=== PATIENT | female | born 1935 | race Hispanic/Latino ===

== ENCOUNTER → 2018-06-28 | Outpatient (CLI) | payer OTHER | END | disposition home or self-care (01) | LOC: RAH 09:54 | PROVIDERS: ATTEND Family Medicine | DX: Z12.31 Encounter for screening mammogram for malignant neoplasm of breast (principal) | CPT/HCPCS: 77067 ==

== ENCOUNTER → 2022-03-01 | Outpatient (CLI) | payer OTHER ==
[~2022-03-01] VITALS: Ht 160 cm; Wt 84.4 kg
[~2022-03-01] MED LIST: REGADENOSON 0.4 MG/5 ML PF SYG IVP SCH
== END | disposition home or self-care (01) ==
LOC: SHCH 09:09
PROVIDERS: ATTEND Internal Medicine Cardiovascular Disease
DX: I20.9 Angina pectoris, unspecified (principal); I45.10 Unspecified right bundle-branch block
CPT/HCPCS: 78452; 96374; 93017; J2785; A9500 ×2

== ENCOUNTER 2022-04-20 06:04 | Day surgery (SDC) | payer OTHER ==
[2022-04-16 11:35] LABS: BASOPHILS % (AUTO) 0.4 % (0.0-5.0); EOSINOPHILS % (AUTO) 2.1 % (0.0-8.0); HEMATOCRIT 37.8 % (36-48); LYMPHOCYTES % (AUTO) 26.1 % (21.0-51.0); MEAN CORPUSCULAR HEMOGLOBIN 29.1 pg (27.0-33.0); MEAN CORPUSCULAR VOLUME 90.9 fL (79-99); MONOCYTES % (AUTO) 6.4 % (3.0-13.0); NEUTROPHILS % (AUTO) 64.6 % (40.0-77.0); PLATELET COUNT (AUTO) 283 K/uL (130-400); RED BLOOD CELL COUNT(AUTO) 4.16 MIL/uL (4.00-5.50); RED CELL DISTRIBUTION WIDTH 13.5 % (11.0-15.5); WHITE BLOOD COUNT (AUTO) 7.5 K/uL (4.8-10.8)
[2022-04-16 11:48] LABS: CREATININE 1.6 mg/dL (0.5-1.5); POTASSIUM 4.4 mmol/L (3.5-5.1)
[2022-04-16 11:51] LABS: INR 0.95 (0.85-1.15); PROTHROMBIN TIME 10.4 SEC (9.6-11.6)
[2022-04-16 11:53] LABS: PARTIAL THROMBOPLASTIN TIME 29.2 SEC (26.3-35.5)
[2022-04-16 12:04] LABS: B-TYPE NATRIURETIC PEPTIDE 510 pg/mL (0-100)
[2022-04-16 12:12] LABS: APPEARANCE,URINE CLEAR (CLEAR); BILIRUBIN,URINE NEGATIVE (NEGATIVE); COLOR,URINE LIGHT-YELLOW (YELLOW); GLUCOSE, URINE (UA) NEGATIVE (NEGATIVE); KETONES,URINE NEGATIVE (NEGATIVE); LEUKOCYTE ESTERASE ,URINE 500 Leu/uL (NEGATIVE); NITRATE,URINE NEGATIVE (NEGATIVE); OCCULT BLOOD,URINE NEGATIVE (NEGATIVE); PROTEIN,URINE 100 mg/dL (NEGATIVE); UROBILINOGEN,URINE 0.2 mg/dL (0.2-1.0)
[2022-04-16 12:32] LABS: BACTERIA,URINE FEW /HPF (None Seen); MUCUS,URINE RARE LPF (None Seen); RBC,URINE 0-1 /HPF (0-1); SQUAMOUS EPITHELIAL CELL,UR RARE /HPF (0-2); WBC,URINE 26-50 /HPF (0-1)
[2022-04-19 10:25] VITALS: BP 110/80
[~2022-04-20] VITALS: Ht 154.9 cm; Wt 83.9 kg
[2022-04-20] VITALS (25 sets, daily range): BP systolic 88–177; BP diastolic 33–81
[~2022-04-20 06:04] MED LIST changes: +ATEN50TA PO; +CLON0.1T PO; +COLC0.6T73 PO; +OMEP40CA21 PO; -REGADENOSON 0.4 MG/5 ML PF SYG IVP SCH; +ROSU10TA28 PO
[2022-04-20] MEDS ORDERED: 0.9%NACL 1000ML 1,000 ML IV ONE (06:24)
[2022-04-20 06:35] LABS: CREATININE 1.7 mg/dL (0.5-1.5); POTASSIUM 4.3 mmol/L (3.5-5.1)
[2022-04-20] MEDS ORDERED: HEPARIN 1,000 UNIT VIAL ONE (07:11)
[2022-04-20] MEDS ORDERED: HEPARIN 10,000 UNIT/10ML (1,000 UNIT/ML) VIAL ONE (07:12)
[2022-04-20] MEDS ORDERED: IOHEXOL 350 MG/ML 100ML INFUS..BTL IV ONE (07:12)
[2022-04-20] MEDS ORDERED: IOHEXOL-350 50ML VIAL IV ONE (07:12)
[2022-04-20] MEDS ORDERED: LIDOCAINE HCL 400MG/20ML VIAL ONE (07:12)
[2022-04-20] MEDS ORDERED: LEVO250T75 PO (07:15)
[2022-04-20] MEDS ORDERED: ENALAPRILAT DIHYDRATE 1.25 MG/ML 2ML VIAL IVP ONE (08:29)
[2022-04-20] MEDS ORDERED: CLONIDINE HCL 0.1 MG TABLET ONE (08:58)
[2022-04-20] MEDS ORDERED: NITROGLYCERIN 4.1 GM SPRAY TL ONE (09:04)
== END 2022-04-20 19:10 | disposition home or self-care (01) ==
LOC: DAH 06:04
PROVIDERS: ATTEND Internal Medicine Cardiovascular Disease
DX: I35.0 Nonrheumatic aortic (valve) stenosis (principal); I25.119 Atherosclerotic heart disease of native coronary artery with unspecified angina pectoris; I10 Essential (primary) hypertension; Z79.899 Other long term (current) drug therapy; Z79.01 Long term (current) use of anticoagulants
CPT/HCPCS: 80048 ×2; 83880; 85025; 85610; 85730; 87088; 81001; 36415 ×2; 71045; 93005 ×2; 93460; A4344 ×2; C1769 ×3; C1894 ×3; J3490 ×2; J7030; J1644 ×2; Q9967 ×2; Q9965

== ENCOUNTER 2022-05-04 21:48 | Observation (INO) | payer OTHER ==
[~2022-05-04] VITALS: Ht 157.5 cm; Wt 84.1 kg
[~2022-05-04 21:48] MED LIST changes: +LEVO250T75 PO
[2022-05-04] MEDS ORDERED: CLOPIDOGREL 300MG TAB PO ONE (22:00)
[2022-05-04 22:24] LABS: BASOPHILS % (AUTO) 0.3 % (0.0-5.0); EOSINOPHILS % (AUTO) 5.5 % (0.0-8.0); HEMATOCRIT 30.8 % (36-48); LYMPHOCYTES % (AUTO) 31.1 % (21.0-51.0); MEAN CORPUSCULAR HEMOGLOBIN 29.5 pg (27.0-33.0); MEAN CORPUSCULAR HGB CONC 32.8 g/dL (32.0-36.0); MEAN CORPUSCULAR VOLUME 90.1 fL (79-99); MONOCYTES % (AUTO) 7.4 % (3.0-13.0); NEUTROPHILS % (AUTO) 55.4 % (40.0-77.0); PLATELET COUNT (AUTO) 249 K/uL (130-400); RED BLOOD CELL COUNT(AUTO) 3.42 MIL/uL (4.00-5.50); RED CELL DISTRIBUTION WIDTH 13.5 % (11.0-15.5); WHITE BLOOD COUNT (AUTO) 6.2 K/uL (4.8-10.8)
[2022-05-04 22:33] LABS: CREATININE 1.9 mg/dL (0.5-1.5); POTASSIUM 4.6 mmol/L (3.5-5.1)
[2022-05-04 22:38] LABS: ALBUMIN 3.1 g/dL (3.5-5.0)
[2022-05-04 22:44] LABS: B-TYPE NATRIURETIC PEPTIDE 131 pg/mL (0-100)
[2022-05-05] MEDS ORDERED: TEMAZEPAM 15 MG CAPSULE PO PRN (08:30)
[2022-05-05] MEDS ORDERED: ACETAMINOPHEN 650 MG SUPPOSITORY RC PRN (08:30)
[2022-05-05] MEDS ORDERED: DOCUSATE SODIUM 100 MG CAP PO PRN (08:30)
[2022-05-05] MEDS ORDERED: LABETALOL 20MG SYG IV PRN (08:30)
[2022-05-05] MEDS ORDERED: ACETAMINOPHEN 325 MG TAB PO PRN (08:30)
[2022-05-05] MEDS ORDERED: LACTULOSE 20 GM/30 ML UDCUP PO PRN (08:30)
[2022-05-05] MEDS ORDERED: HYDRALAZINE 20MG/ML VIAL IV PRN (08:30)
[2022-05-05] MEDS ORDERED: ONDANSETRON 4MG INJ IVP PRN (08:30)
[2022-05-05] MEDS ORDERED: CLONIDINE HCL 0.1 MG TABLET PO PRN (09:00)
[2022-05-05] MEDS ORDERED: ATENOLOL 50 MG TABLET PO SCH (09:00)
[2022-05-05] MEDS: ASPIRIN 81MG CHEW TAB PO SCH (09:57)
[2022-05-05] MEDS: 0.9%NACL 1000ML 1,000 ML IV SCH (14:00)
[2022-05-05] MEDS ORDERED: FAMOTIDINE 20MG TAB PO ONE (15:30)
[2022-05-05] MEDS ORDERED: AMOX/CLAV 500/125MG TAB PO ONE (16:21)
[2022-05-05] MEDS ORDERED: FAMOTIDINE 20MG TAB ONE (16:21)
[2022-05-05] MEDS: AMOX/CLAV 500/125MG TAB PO SCH (16:33)
[2022-05-05] MEDS: ATORVASTATIN 40 MG TABLET PO SCH (20:05)
[2022-05-05] MEDS ORDERED: SILVER SULFADIAZINE CREAM 400 GM TP SCH (21:00)
[2022-05-05 23:40] VITALS: BP 175/83
[2022-05-06] MEDS: 0.9%NACL 1000ML 1,000 ML IV SCH ×2 (03:20→12:14)
[2022-05-06] MEDS: AMOX/CLAV 500/125MG TAB PO SCH ×2 (03:40→14:54)
[2022-05-06] MEDS: CLONIDINE HCL 0.1 MG TABLET PO PRN ×2 (03:40→19:27)
[2022-05-06 03:56] VITALS: BP 174/73
[2022-05-06 05:06] LABS: BASOPHILS % (AUTO) 0.7 % (0.0-5.0); EOSINOPHILS % (AUTO) 5.9 % (0.0-8.0); HEMATOCRIT 32.9 % (36-48); LYMPHOCYTES % (AUTO) 30.7 % (21.0-51.0); MEAN CORPUSCULAR HEMOGLOBIN 28.8 pg (27.0-33.0); MEAN CORPUSCULAR HGB CONC 31.9 g/dL (32.0-36.0); MEAN CORPUSCULAR VOLUME 90.4 fL (79-99); MONOCYTES % (AUTO) 7.9 % (3.0-13.0); NEUTROPHILS % (AUTO) 54.3 % (40.0-77.0); PLATELET COUNT (AUTO) 241 K/uL (130-400); RED BLOOD CELL COUNT(AUTO) 3.64 MIL/uL (4.00-5.50); RED CELL DISTRIBUTION WIDTH 13.3 % (11.0-15.5); WHITE BLOOD COUNT (AUTO) 6.1 K/uL (4.8-10.8)
[2022-05-06 05:19] LABS: CREATININE 1.5 mg/dL (0.5-1.5); MAGNESIUM 1.7 mg/dL (1.80-2.40); PHOSPHORUS 4.3 mg/dL (2.5-4.9); POTASSIUM 4.1 mmol/L (3.5-5.1)
[2022-05-06 08:00] VITALS: BP 147/55
[2022-05-06] MEDS: ASPIRIN 81MG CHEW TAB PO SCH (10:28)
[2022-05-06] MEDS: FAMOTIDINE 20MG TAB PO SCH (10:30)
[2022-05-06] MEDS: ATENOLOL 50 MG TABLET PO SCH (10:31)
[2022-05-06 12:00] VITALS: BP 148/77
[2022-05-06] MEDS ORDERED: IOHEXOL 350 MG/ML 100ML INFUS..BTL IV ONE (12:08)
[2022-05-06] MEDS ORDERED: MAGNESIUM 2GM PREMIX 50ML 50 ML IV ONE (14:51)
[2022-05-06] MEDS: SILVER SULFADIAZINE CREAM 50 GM TP SCH ×2 (14:53→19:23)
[2022-05-06 16:00] VITALS: BP 130/45
[2022-05-06] MEDS: ATORVASTATIN 40 MG TABLET PO SCH (19:23)
[2022-05-06 20:00] VITALS: BP 167/64
[2022-05-07] VITALS: BP 133/64
[2022-05-07] MEDS: 0.9%NACL 1000ML 1,000 ML IV SCH (03:38)
[2022-05-07] MEDS: AMOX/CLAV 500/125MG TAB PO SCH (03:38)
[2022-05-07 04:00] VITALS: BP 149/62
[2022-05-07 04:49] LABS: HEMATOCRIT 30.4 % (36-48); MEAN CORPUSCULAR HEMOGLOBIN 29.1 pg (27.0-33.0); MEAN CORPUSCULAR HGB CONC 32.9 g/dL (32.0-36.0); MEAN CORPUSCULAR VOLUME 88.4 fL (79-99); RED BLOOD CELL COUNT(AUTO) 3.44 MIL/uL (4.00-5.50); RED CELL DISTRIBUTION WIDTH 13.5 % (11.0-15.5); WHITE BLOOD COUNT (AUTO) 5.5 K/uL (4.8-10.8)
[2022-05-07 05:18] LABS: CREATININE 1.6 mg/dL (0.5-1.5); MAGNESIUM 2.4 mg/dL (1.80-2.40); PHOSPHORUS 4.6 mg/dL (2.5-4.9); POTASSIUM 4.8 mmol/L (3.5-5.1)
[2022-05-07 07:30] VITALS: BP 142/63
[2022-05-07] MEDS: FAMOTIDINE 20MG TAB PO SCH (08:59)
[2022-05-07] MEDS: ASPIRIN 81MG CHEW TAB PO SCH (08:59)
[2022-05-07] MEDS: ATENOLOL 50 MG TABLET PO SCH (09:00)
[2022-05-07] MEDS ORDERED: ASPI-1005 PO (09:57)
[2022-05-07] MEDS ORDERED: AMOX1TAB15 PO (09:57)
[2022-05-07] MEDS ORDERED: ATEN50TA PO (09:57)
[2022-05-07] MEDS ORDERED: SILV25CR23 TP (09:57)
[2022-05-07 11:00] VITALS: BP 131/58
== END 2022-05-07 13:40 | disposition home or self-care (01) ==
LOC: EDH 21:48 → EDHIP 23:18 → 4DH 05-05 23:18
PROVIDERS: ADMIT Internal Medicine Critical Care Medicine; ATTEND Internal Medicine Critical Care Medicine
DX: T21.31XA Burn of third degree of chest wall, initial encounter (principal); Z20.822 Contact with and (suspected) exposure to COVID-19; T22.312A Burn of third degree of left forearm, initial encounter; I35.0 Nonrheumatic aortic (valve) stenosis; I25.110 Atherosclerotic heart disease of native coronary artery with unstable angina pectoris; M10.9 Gout, unspecified; I45.2 Bifascicular block; K44.9 Diaphragmatic hernia without obstruction or gangrene; K21.9 Gastro-esophageal reflux disease without esophagitis; I12.9 Hypertensive chronic kidney disease with stage 1 through stage 4 chronic kidney disease, or unspecified chronic kidney disease; N18.30 Chronic kidney disease, stage 3 unspecified; E78.5 Hyperlipidemia, unspecified; Z90.710 Acquired absence of both cervix and uterus; Z79.899 Other long term (current) drug therapy; Z79.82 Long term (current) use of aspirin; X15.0XXA Contact with hot stove (kitchen), initial encounter; Y93.89 Activity, other specified; Y92.89 Other specified places as the place of occurrence of the external cause
CPT/HCPCS: 99285; 84484 ×2; 80053; 83880; 85025 ×2; 36415 ×3; 71045 ×2; 93005; 96361 ×3; 96375; 87635; 96365; 83735 ×2; 84100 ×2; 80048 ×2; 74174; 75574; 16030; 85027; 94760 ×2; G0378 ×63; J0360 ×2; J3475; Q9967

== ENCOUNTER 2022-06-24 07:00 | Observation (INO) | payer OTHER ==
[2022-06-22 09:08] LABS: BASOPHILS % (AUTO) 0.6 % (0.0-5.0); EOSINOPHILS % (AUTO) 4.1 % (0.0-8.0); HEMATOCRIT 35.7 % (36-48); MEAN CORPUSCULAR HEMOGLOBIN 28.2 pg (27.0-33.0); MEAN CORPUSCULAR HGB CONC 32.5 g/dL (32.0-36.0); MEAN CORPUSCULAR VOLUME 86.9 fL (79-99); MONOCYTES % (AUTO) 5.6 % (3.0-13.0); NEUTROPHILS % (AUTO) 61.3 % (40.0-77.0); PLATELET COUNT (AUTO) 319 K/uL (130-400); RED BLOOD CELL COUNT(AUTO) 4.11 MIL/uL (4.00-5.50); RED CELL DISTRIBUTION WIDTH 13.4 % (11.0-15.5); WHITE BLOOD COUNT (AUTO) 7.1 K/uL (4.8-10.8)
[2022-06-22 09:14] LABS: APPEARANCE,URINE CLEAR (CLEAR); BILIRUBIN,URINE NEGATIVE (NEGATIVE); COLOR,URINE LIGHT-YELLOW (YELLOW); GLUCOSE, URINE (UA) NEGATIVE (NEGATIVE); KETONES,URINE NEGATIVE (NEGATIVE); LEUKOCYTE ESTERASE ,URINE 75 Leu/uL (NEGATIVE); NITRATE,URINE NEGATIVE (NEGATIVE); OCCULT BLOOD,URINE NEGATIVE (NEGATIVE); PROTEIN,URINE 200 mg/dL (NEGATIVE); UROBILINOGEN,URINE 0.2 mg/dL (0.2-1.0)
[2022-06-22 09:16] LABS: CREATININE 1.9 mg/dL (0.5-1.5); POTASSIUM 4.5 mmol/L (3.5-5.1)
[2022-06-22 09:17] LABS: INR 0.97 (0.85-1.15); PROTHROMBIN TIME 10.6 SEC (9.6-11.6)
[2022-06-22 09:19] LABS: PARTIAL THROMBOPLASTIN TIME 24.8 SEC (26.3-35.5)
[2022-06-22 09:49] LABS: B-TYPE NATRIURETIC PEPTIDE 530 pg/mL (0-100)
[2022-06-22 09:53] LABS: BACTERIA,URINE RARE /HPF (None Seen); MUCUS,URINE RARE LPF (None Seen); RBC,URINE 0-1 /HPF (0-1); SQUAMOUS EPITHELIAL CELL,UR RARE /HPF (0-2)
[2022-06-23 11:10] VITALS: BP 191/106
[2022-06-24] VITALS (20 sets, daily range): BP systolic 122–199; BP diastolic 50–76
[~2022-06-24] VITALS: Ht 160 cm; Wt 81.6 kg
[~2022-06-24 07:00] MED LIST changes: +AEC81 PO; +BACL5TAB PO; +DICY10CA13 PO; -LEVO250T75 PO
[2022-06-24] MEDS ORDERED: 0.9%NACL 1000ML 1,000 ML IV ONE (07:25)
[2022-06-24] MEDS ORDERED: IOHEXOL 350 MG/ML 100ML INFUS..BTL IV ONE (09:09)
[2022-06-24] MEDS ORDERED: IOHEXOL-350 50ML VIAL IV ONE (09:09)
[2022-06-24] MEDS ORDERED: BIVALIRUDIN 250 MG/VIAL IV ONE (09:09)
[2022-06-24] MEDS ORDERED: LIDOCAINE HCL 400MG/20ML VIAL ONE (09:10)
[2022-06-24] MEDS ORDERED: FENTANYL CITRATE PF 50 MCG/1 ML 2ML VIAL ONE ×3 (09:10→11:56)
[2022-06-24] MEDS ORDERED: MIDAZOLAM HCL 1 MG/ML 2ML VIAL ONE (09:10)
[2022-06-24] MEDS ORDERED: CLOPIDOGREL 300MG TAB ONE (10:05)
[2022-06-24] MEDS ORDERED: ATROPINE 1MG SYG IVP ONE (10:10)
[2022-06-24] MEDS ORDERED: ASPIRIN 325MG EC TAB PO ONE (10:11)
[2022-06-24] MEDS ORDERED: HYDRALAZINE 20MG/ML VIAL ONE ×2 (10:13→11:07)
[2022-06-24] MEDS ORDERED: EPTIFIBATIDE 2 MG/ML 10 ML VIAL IVP ONE (10:31)
[2022-06-24] MEDS ORDERED: ONDANSETRON 4MG INJ ONE (10:59)
[2022-06-24] MEDS ORDERED: ONDANSETRON 4MG INJ IVP PRN (11:30)
[2022-06-24] MEDS ORDERED: CLONIDINE HCL 0.1 MG TABLET PO PRN (11:30)
[2022-06-24] MEDS ORDERED: COLCHICINE 0.6 MG TABLET PO PRN (11:30)
[2022-06-24] MEDS ORDERED: 0.9%NACL 1000ML 1,000 ML IV SCH (11:30)
[2022-06-24] MEDS ORDERED: ACETAMINOPHEN WITH CODEINE 1 TAB TAB PO PRN ×2 (11:30)
[2022-06-24] MEDS ORDERED: DICYCLOMINE 10 MG PO PRN (11:30)
[2022-06-24] MEDS ORDERED: NITROGLYCERIN 50MG/D5W 250ML 1 BOT IV PRN (11:30)
[2022-06-24] MEDS ORDERED: TEMAZEPAM 30 MG CAP PO PRN (11:30)
[2022-06-24] MEDS ORDERED: FENTANYL CITRATE PF 50 MCG/1 ML 2ML VIAL IVP SCH (12:00)
[2022-06-24] MEDS ORDERED: NITROGLYCERIN 0.4 MG SL TAB SL ONE (17:09)
[2022-06-24] MEDS ORDERED: MORPHINE 2 MG SYG IVP PRN (17:30)
[2022-06-24] MEDS ORDERED: NITROGLYCERIN 0.4 MG SL TAB SL PRN (17:30)
[2022-06-24] MEDS: ATENOLOL 50 MG TABLET PO SCH (20:44)
[2022-06-24] MEDS ORDERED: ATORVASTATIN 20 MG TABLET PO SCH (21:00)
[2022-06-24] MEDS ORDERED: BACLOFEN 10 MG TABLET PO SCH (21:00)
[2022-06-24] MEDS ORDERED: NITROGLYCERIN 1GM OINT 1 INCH/1GM TD ONE (22:12)
[2022-06-25 03:34] LABS: BASOPHILS % (AUTO) 0.5 % (0.0-5.0); EOSINOPHILS % (AUTO) 2.6 % (0.0-8.0); HEMATOCRIT 30.8 % (36-48); LYMPHOCYTES % (AUTO) 29.4 % (21.0-51.0); MEAN CORPUSCULAR HEMOGLOBIN 27.8 pg (27.0-33.0); MEAN CORPUSCULAR HGB CONC 31.2 g/dL (32.0-36.0); MEAN CORPUSCULAR VOLUME 89.3 fL (79-99); NEUTROPHILS % (AUTO) 60.2 % (40.0-77.0); PLATELET COUNT (AUTO) 252 K/uL (130-400); RED BLOOD CELL COUNT(AUTO) 3.45 MIL/uL (4.00-5.50); RED CELL DISTRIBUTION WIDTH 13.7 % (11.0-15.5); WHITE BLOOD COUNT (AUTO) 6.5 K/uL (4.8-10.8)
[2022-06-25 03:57] LABS: CREATININE 1.8 mg/dL (0.5-1.5); MAGNESIUM 1.8 mg/dL (1.80-2.40); POTASSIUM 5.4 mmol/L (3.5-5.1)
[2022-06-25 04:47] VITALS: BP_SYST 107; BP_SYST 138; BP_DIAS 56; BP_DIAS 63
[2022-06-25 08:53] VITALS: BP 111/58
[2022-06-25] MEDS ORDERED: ASPIRIN 81 MG EC TAB PO SCH (09:00)
[2022-06-25] MEDS ORDERED: PANTOPRAZOLE 40 MG TAB DR PO SCH (09:00)
[2022-06-25] MEDS ORDERED: ASPIRIN 81MG CHEW TAB PO SCH (09:00)
[2022-06-25] MEDS ORDERED: CLOPIDOGREL 75MG TAB PO SCH (09:00)
[2022-06-25] MEDS ORDERED: CLOP75TA32 PO (09:07)
[2022-06-25] MEDS ORDERED: FAMO20TA8 PO (09:07)
[2022-06-25] MEDS ORDERED: ROSU20TA31 PO (09:07)
[2022-06-25 09:28] VITALS: BP 111/58
[2022-06-25] MEDS: ATENOLOL 50 MG TABLET PO SCH (09:28)
== END 2022-06-25 13:00 | disposition home or self-care (01) ==
LOC: DAH 07:00 → DAHIP 07:01 → 2AH 14:00
PROVIDERS: ADMIT Internal Medicine; ATTEND Internal Medicine
DX: I25.10 Atherosclerotic heart disease of native coronary artery without angina pectoris (principal); I35.0 Nonrheumatic aortic (valve) stenosis; I12.9 Hypertensive chronic kidney disease with stage 1 through stage 4 chronic kidney disease, or unspecified chronic kidney disease; N18.32 Chronic kidney disease, stage 3b; E78.5 Hyperlipidemia, unspecified; Q33.3 Agenesis of lung; Z90.710 Acquired absence of both cervix and uterus; Z79.899 Other long term (current) drug therapy; Z98.890 Other specified postprocedural states; Z79.82 Long term (current) use of aspirin
CPT/HCPCS: 80048 ×2; 83880; 85025 ×2; 85610; 85730; 87088; 81001; 36415 ×2; 71045; 93005 ×4; 93454; 84484 ×2; 83735; 80061; C1887 ×2; C1894 ×2; C1769; C1760; C1874 ×2; G0378 ×25; J3010 ×3; J3490; J7030 ×2; J0360 ×2; J2250; J2405; J1327; J1644 ×2; J0583; Q9967 ×2; A4215; A4223 ×3; A4222; A4221; A4663; A4216; A4606; C9600; 99156; 99157; J0461

== ENCOUNTER → 2022-07-01 | Outpatient (CLI) | payer OTHER ==
[~2022-07-01] MED LIST changes: +CLOP75TA32 PO; +FAMO20TA8 PO; -OMEP40CA21 PO; -ROSU10TA28 PO; +ROSU20TA31 PO
[2022-07-01 16:38] LABS: CREATININE 1.7 mg/dL (0.5-1.5)
== END | disposition home or self-care (01) ==
LOC: LAB 10:39
PROVIDERS: ATTEND Internal Medicine Cardiovascular Disease
DX: I10 Essential (primary) hypertension (principal); I25.10 Atherosclerotic heart disease of native coronary artery without angina pectoris
CPT/HCPCS: 36415; 80048

== ENCOUNTER 2022-10-01 23:33 | Emergency (ER) | payer OTHER ==
[~2022-10-01] VITALS: Ht 160 cm; Wt 79.8 kg
[2022-10-01 23:56] LABS: BASOPHILS % (AUTO) 0.8 % (0.0-5.0); EOSINOPHILS % (AUTO) 6.1 % (0.0-8.0); HEMATOCRIT 31.8 % (36-48); LYMPHOCYTES % (AUTO) 25.8 % (21.0-51.0); MEAN CORPUSCULAR HEMOGLOBIN 29.3 pg (27.0-33.0); MEAN CORPUSCULAR VOLUME 88.8 fL (79-99); MONOCYTES % (AUTO) 8.2 % (3.0-13.0); NEUTROPHILS % (AUTO) 58.9 % (40.0-77.0); PLATELET COUNT (AUTO) 305 K/uL (130-400); RED BLOOD CELL COUNT(AUTO) 3.58 MIL/uL (4.00-5.50); RED CELL DISTRIBUTION WIDTH 14.5 % (11.0-15.5); WHITE BLOOD COUNT (AUTO) 5.2 K/uL (4.8-10.8)
[2022-10-02 00:04] LABS: CREATININE 1.7 mg/dL (0.5-1.5); POTASSIUM 4.6 mmol/L (3.5-5.1)
[2022-10-02 00:08] LABS: ALBUMIN 2.6 g/dL (3.5-5.0); TOTAL PROTEIN, SERUM 7.1 g/dL (6.0-8.3)
[2022-10-02] MEDS ORDERED: ONDANSETRON 4MG INJ ONE (00:21)
[2022-10-02] MEDS ORDERED: HYDROMORPHONE 0.5 MG SYG (0.5MG/0.5ML) ONE (00:21)
[2022-10-02] MEDS ORDERED: HYDROMORPHONE 0.5 MG SYG (0.5MG/0.5ML) IVP STA (00:25)
[2022-10-02] MEDS ORDERED: ONDANSETRON 4MG INJ IVP STA (00:25)
[2022-10-02] MEDS ORDERED: DOCU-116 PO (03:54)
[2022-10-02] MEDS ORDERED: OMEP20TA2 PO (03:54)
[2022-10-02 05:07] VITALS: BP 116/68
== END 2022-10-02 05:08 ==
LOC: EDH 23:33
DX: R10.12 Left upper quadrant pain (principal); E78.00 Pure hypercholesterolemia, unspecified; I10 Essential (primary) hypertension; Z90.710 Acquired absence of both cervix and uterus; Z59.00 Homelessness unspecified; Z79.82 Long term (current) use of aspirin; Z79.899 Other long term (current) drug therapy; Z95.2 Presence of prosthetic heart valve; Z95.5 Presence of coronary angioplasty implant and graft
CPT/HCPCS: 99285; 80053; 83690; 85025; 36415; 71250; 96374; 76705; 96375; 74176; 93005; J2405; J1170